=== PATIENT | male | born 1950 | race Hispanic/Latino ===

== ENCOUNTER → 2022-10-05 | Outpatient (CLI) | payer MEDICARE | END | disposition home or self-care (01) | LOC: RAH 10:02 | PROVIDERS: ATTEND Surgery Surgical Oncology | DX: C19 Malignant neoplasm of rectosigmoid junction (principal); Z90.49 Acquired absence of other specified parts of digestive tract | CPT/HCPCS: 74177 ==

== ENCOUNTER → 2022-12-13 | Outpatient (CLI) | payer MEDICARE ==
[~2022-12-13] MED LIST: GADOTERATE MEGLUMINE 10 MMOL/20 ML VIAL IV ONE
== END | disposition home or self-care (01) ==
LOC: RAH 14:00
PROVIDERS: ATTEND Surgery Surgical Oncology
DX: C20 Malignant neoplasm of rectum (principal)
CPT/HCPCS: 72197; A9575